=== PATIENT | male | born 1945 | race Caucasian/White ===

== ENCOUNTER 2024-08-15 11:30 | Day surgery (SDC) | payer OTHER, SELFPAY ==
[2024-08-15] VITALS (10 sets, daily range): BP systolic 71–133; BP diastolic 48–80; PULSE 65–81; RESP 12–16; TEMP 36.1–36.3; O2SAT 94–99; BMI 23.6
--- NOTE | 2024-08-15 12:30 | EGD_PTH ---
PATIENT: CRYSTAL PATE LOC: EN U#:[id number] AGE/SX: 79/M ROOM: RE08/15/[address]: Dr. Avi Okeefe DO : 1945 BED: DIS: 08/15/2024 SPEC #: [id number] RECD: 08/15/24 14:12 STATUS: TANO RETaty #: [id number] BLANCO: 08/15/24 12:[address]: Avi Okeefe DEPT: SURGICAL PATHOLOGY RECD BY: Stormy Mensah Tissues: Esophagus, NOS Procedures: Special Stain Group I Surgery Specimen Level IV Alcian Blue/PAS (control) HEADER OPERATION: EGD with biopsy and Argon plasma coagulation PRE-OP DIAGNOSIS: Dysphagia TISSUE SUBMITTED: Distal esophagus biopsy MICROSCOPIC DIAGNOSIS Distal esophagus, biopsy: Fragments of gastroesophageal mucosa with chronic inflammation. Intestinal metaplasia (goblet cell metaplasia) not identified. See comment. 08/17/2024 COMMENT Alcian blue/PAS stain with matched control is used in the evaluation of the specimen. The specimen predominantly consists of squamous mucosa. MICROSCOPIC DESCRIPTION Slides are reviewed. GROSS DESCRIPTION Received in fixative is one container labeled with the patient's name and designated Distal esophagus biopsy. The specimen consists of multiple irregular fragments of light pérez soft tissue that in aggregate measure 2.0 x 0.5 x 0.3 cm. The specimen is totally submitted in one cassette. 08/16/2024 TC:3 CPT:95602,44851
--- NOTE | 2024-08-15 12:58 | PCM.HP.STD ---
HPI - General General Date of Admission: 08/15/24 Date of Service: 08/15/24 Chief Complaint: dysphagia HPI Narrative CRYSTAL PATE, is a 79 M who Pt reports trouble swallowing, change in bowel habits, abdominal pain and heartburn. Prior hx of EGD in 2022 and colonoscopy years ago. Pt reports they have had trouble in the past with colonoscopy due to hernia repair. reports pt is losing weight do to having trouble swallowing and food getting stuck. He only has issues with solids and never liquids. At this point, his diet consists of mostly boost nutritional drinks. He does have a hx of heartburn but it has not been bad recently. He has no appetite or ability to taste. He has constipation occasionally alternating with diarrhea. This is his normal. Last colonoscopy was over 10 years ago. He did have a Cologuard test about one year ago that was normal. EGD 8..21; mild schatzki ring, normal stomach, erythematous duodenopathy EGD 5.3.23; normal esophagus, gastritis, duodenitis [facility] Medical History (Updated 08/15/24 @ 13:[address] Cárdenas Friend, DO) Wears hearing aid Dermatitis Rash Back pain Arthritis Inguinal hernia Former smoker Cardiology follow-up encounter Vitamin D deficiency PTSD (post-traumatic stress disorder) NICOLE (obstructive sleep apnea) Low back pain Hiatal hernia Feeding difficulty Diverticulosis Chronic neck pain Bilateral hearing loss Benign essential HTN HLD (hyperlipidemia) Depression GERD (gastroesophageal reflux disease) Supraventricular tachycardia Type 2 diabetes mellitus Malignant neoplasm of prostate Dysphagia Home Medications ?Medication ?Instructions ?Recorded ?Last Taken ?Type cholecalciferol (vitamin D3) 125 125 mcg PO QDAY 07/28/24 Unknown History mcg (5,000 unit) capsule coenzyme Q10 100 mg capsule 100 mg PO QDAY 07/28/24 Unknown History (CoQ-10) glipizide 5 mg tablet 5 mg PO BID 07/28/24 Unknown History magnesium oxide 400 mg (241.3 mg 400 mg PO QDAY 07/28/24 Unknown History magnesium) tablet metformin 1,000 mg tablet 1,000 mg PO BID 07/28/24 Unknown History multivitamin 1 tab PO QAM 07/28/24 Unknown History sertraline 150 mg capsule 150 mg PO BID 07/28/24 Unknown History simvastatin 80 mg tablet 40 mg PO QDAY 07/28/24 Unknown History acetaminophen 500 mg capsule 500 mg PO Q6H PRN pain 08/11/24 Unknown History Allergy/AdvReac Type Severity Reaction Status Date / Time Penicillins (PCN) Allergy Intermediate Hives Verified 08/15/24 12:08 Family History Father Prostate cancer Mother Cerebral embolism Social History Smoking Status: Former smoker quit date: 08/02/83 alcohol intake: never ROS Constitutional Constitutional: Denies fatigue, fever(s), poor appetite, weight gain or weight loss Gastrointestinal Gastrointestinal: Denies belching, bloating, change in bowel habits, change in stool character, chewing difficulty, coffee ground emesis, constipation, cramping, diarrhea, dyspepsia, dysphagia, early satiety, excessive flatus, fecal incontinence, heartburn, hematemesis, hematochezia, hemorrhoids, loose stools, melena, nausea, odynophagia, rectal bleeding, tenesmus, vomiting or weight changes Vital Signs Vital Signs Vital Signs: 08/15/24 12:10 08/15/24 12:10 Temperature 97 F L Temperature Source Temporal Pulse Rate 68 Respiratory Rate 14 Respiratory Pattern Normal Blood Pressure 133/80 H Blood Pressure Mean 97 Blood Pressure Source Monitor Blood Pressure Position Semi-Fowlers Blood Pressure Location Right Arm Pulse Ox 98 Oxygen Delivery Method Room Air Weight Weight: 174 lb 2.643 oz Body Mass Index (BMI) 23.6 Physical Exam Const alert, oriented x3, no apparent distress and healthy appearing General Appearance: cooperative GI normal to inspection, nondistended, normoactive bowel sounds, soft to palpation, non-tender and non-distended Percussion: normal to percussion Rectal Exam: deferred Assessment & Plan Assessment/Plan (1) Dysphagia: PLAN: Assessment and Plan Assessment and Plan (1) Dysphagia: Plan: This is an 79 yo male pt who is [facility] here today for chronic issues with swallowing. Pt has been having food get stuck in his esophagus for a few years but is now increasing in frequency. His diet is limited and mostly consists of boost nutritional drinks. He has had multiple EGDs in the past showing Schatzki ring and inflammation in the stomach and duodenum. Last EGD was in 2022. He will undergo another EGD at this time to assess for inflammation, stricturing, or dysmotility. -EGD with dilation if indicated -f/u after procedure
--- NOTE | 2024-08-15 12:58 | PCM.PRE.AN2 ---
ASA Classification* ASA Classification ASA Classification: 3 Assessment & Plan Anesthesia* Anesthesia Assessment Anesthesia Assessment: Discussed sedation and/or anesthesia options, risks, benefits, and alternatives with patient/parents/legal guardian/POA. Questions invited. The patient/parents/legal guardian/POA seems to understand and agrees to proceed with anesthesia plan. Reviewed the physical assessment, medical history, allergy history and patient home medications list prior to surgery/procedure/anesthetic and documented any changes. Performed airway and anesthesia risk assessments. Anesthesia Type Anesthesia Type: MAC History Source History Obtained from:: Patient and Chart Anesthesia Focused Assessment* Temperature: 97 F Pulse Rate: 68 Blood Pressure: 133/80 Respiratory Rate: 14 Pulse Ox: 98 Oxygen Delivery Method: Room Air Airway Assessment Mouth opens: >3 cm Mallampati Score: III Teeth Condition: Missing (Multiple missing molars.) Neck Range of motion (ROM): Limited ROM (Somewhat decreased extension) Focused Labs Anesthesia Preop lab: CBC CHEMISTRY COAG Pre-Assessment Diagnosis/Proposed Procedure Planned Operative Procedure(s): EGD Anesthesia History Anesthesia History - clay modeler: Anesthesia History - clay modeler Hx Hospitalization No 08/11/24 14:57 Any Problems With Anesthesia No 08/11/24 14:57 Cholinesterase deficiency No 08/11/24 14:57 You/Your Family Experience No 08/11/24 14:57 fever (hyperthermia) with Relationship Recent Exposure to Contagious No 08/15/24 12:10 Disease Does patient have nerve No 08/11/24 14:57 stimulator Patient instructed to have device shut off --Does patient have Pacemaker No 08/15/24 12:10 or ICD? When Was Last Pacemaker Check QUESTION #4 FULL TEXT: You/Your Family Experience fever (hyperthermia) with Anesthesia Last Oral Intake Last Oral intake: Last Oral Intake NPO since 23:00 08/15/24 12:10 Meds taken in AM with sips of No 08/15/24 12:10 water? Meds patient instructed to take am of surgery PONV PONV - clay modeler: PONV - clay modeler Female Yes 08/11/24 14:57 HX of Motion Sickness No 08/11/24 14:57 HX of N/V After Surgery No 08/11/24 14:57 Non-Smoker Yes 08/11/24 14:57 Duration of Surgery greater No 08/11/24 14:57 than 60 minutes Number of Risk Factors 2 08/11/24 14:57 PONV Score Moderate Risk 08/11/24 14:57 Height & Weight Height & Weight: Anesthesia: Height & Weight Height 6 ft 08/15/24 12:10 Weight: 79 kg 08/15/24 12:10 Body Mass Index (BMI) 23.6 08/15/24 12:10 Respiratory Assessment Respiratory Assessment - clay modeler: Respiratory Tract Infection Hx - clay modeler Hx Respiratory Tract Infection No 08/11/24 14:57 STOP Sleep Apnea STOP Sleep Apnea - clay modeler: STOP Sleep Apnea - clay modeler Hx Hypertension No 08/11/24 14:57 Hx Sleep Apnea Yes 08/11/24 14:57 CPAP Yes: DOESN'T WEAR 08/11/24 14:57 BIPAP No 08/11/24 14:57 Do you snore loudly (louder than talking or can be heard Do you often feel tired/ fatigued/ sleepy during daytime? Has anyone observed you stop breathing during sleep? STOP Results Positive 08/11/24 14:57 QUESTION #5 FULL TEXT : Do you snore loudly (louder than talking or can be heard through closed doors)? Tobacco Use History Tobacco Use History - clay modeler: Tobacco Use History - clay modeler Tobacco Use Smoking Status Former smoker 08/11/24 14:57 Hx Tobacco Use No 08/11/24 14:57 Years Smoking Packs Smoked per Day Smoking Cessation Date was No - quit smoking greater 08/11/24 14:57 within the last 15 years than 15 years ago Hx Smoking Cessation Date Hx Smoking Cessation Counseling Hematologic Medial History Hematologic Hx - clay modeler: Hematologic Medical Hx - maintenance welder Hx of Blood Transfusion No 08/11/24 14:57 Hx of Transfusion in last 3 No 08/11/24 14:57 Months Date of Last Transfusion (if within last 3 months) Ever experience any problems No 08/11/24 14:57 with transfusion(s)? Specify any problems Hx of Preganancy in last 3 N/A 08/11/24 14:57 Months Nurse Filling Out Transfusion [email or web address] 08/11/24 14:57 & Questions: Date: 08/11/24 08/11/24 14:57 Time: 15:02 08/11/24 14:57 Patient unable to answer at this time (ie. confused, unrespo /Reproduction History /Reproductive History - clay modeler: /Reproductive Hx- clay modeler Hx Now Gestational Age (in weeks): EDC: Hx Hx Para Hx Section SAB PFSH Medical History Wears hearing aid Dermatitis Rash Back pain Arthritis Inguinal hernia Former smoker Cardiology follow-up encounter Vitamin D deficiency PTSD (post-traumatic stress disorder) NICOLE (obstructive sleep apnea) Low back pain Hiatal hernia Feeding difficulty Diverticulosis Chronic neck pain Bilateral hearing loss Benign essential HTN HLD (hyperlipidemia) Depression GERD (gastroesophageal reflux disease) Supraventricular tachycardia Type 2 diabetes mellitus Malignant neoplasm of prostate Dysphagia Home Medications ?Medication ?Instructions ?Recorded ?Last Taken ?Type cholecalciferol (vitamin D3) 125 125 mcg PO QDAY 07/28/24 Unknown History mcg (5,000 unit) capsule coenzyme Q10 100 mg capsule 100 mg PO QDAY 07/28/24 Unknown History (CoQ-10) glipizide 5 mg tablet 5 mg PO BID 07/28/24 Unknown History magnesium oxide 400 mg (241.3 mg 400 mg PO QDAY 07/28/24 Unknown History magnesium) tablet metformin 1,000 mg tablet 1,000 mg PO BID 07/28/24 Unknown History multivitamin 1 tab PO QAM 07/28/24 Unknown History sertraline 150 mg capsule 150 mg PO BID 07/28/24 Unknown History simvastatin 80 mg tablet 40 mg PO QDAY 07/28/24 Unknown History acetaminophen 500 mg capsule 500 mg PO Q6H PRN pain 08/11/24 Unknown History Allergy/AdvReac Type Severity Reaction Status Date / Time Penicillins (PCN) Allergy Intermediate Hives Verified 08/15/24 12:08 Family History Father Prostate cancer Mother Cerebral embolism Surgical History (Updated 08/15/24 @ 13:[address] Pantera Eubanks MD) Abnormal TRUS (transrectal ultrasound), prostate H/O right inguinal hernia repair Social History Smoking Status: Former smoker quit date: 08/02/83 alcohol intake: never Review of Systems (Anesthesia) ROS Narrative System reviewed and no additional complaints, except as documented.
--- NOTE | 2024-08-15 13:40 | OP.EGD_ITS ---
Patient Name: Aldo Quintero Procedure Date: 08/15/2024 1:04 PM Date of : 1945 Age: 79 Procedure: Upper GI endoscopy Indications: Dysphagia Providers: Avi Okeefe DO Referring MD: Lady Raymond Medicines: Monitored Anesthesia Care Patient Profile: This is an 79 year old male. Refer to note in patient chart for documentation of history and physical. Patient has symptoms of dysphagia with solids. Complications: No immediate complications. Procedure: Pre-Anesthesia Assessment: - Prior to the procedure, a History and Physical was performed, and patient medications and allergies were reviewed. The patient is competent. The risks and benefits of the procedure and the sedation options and risks were discussed with the patient. All questions were answered and informed consent was obtained. Patient identification and proposed procedure were verified by the physician in the pre-procedure area. Mental Status Examination: alert and oriented. Airway Examination: normal oropharyngeal airway and neck mobility. Respiratory Examination: clear to auscultation. CV Examination: normal. Prophylactic Antibiotics: The patient does not require prophylactic antibiotics. Prior Anticoagulants: The patient has taken no anticoagulant or antiplatelet agents except for NSAID medication. ASA Grade Assessment: III - A patient with severe systemic disease. After reviewing the risks and benefits, the patient was deemed in satisfactory condition to undergo the procedure. The anesthesia plan was to use monitored anesthesia care (MAC). Immediately prior to administration of medications, the patient was re-assessed for adequacy to receive sedatives. The heart rate, respiratory rate, oxygen saturations, blood pressure, adequacy of pulmonary ventilation, and response to care were monitored throughout the procedure. The physical status of the patient was re-assessed after the procedure. After obtaining informed consent, the endoscope was passed under direct vision. Throughout the procedure, the patient's blood pressure, pulse, and oxygen saturations were monitored continuously. The Endoscope was introduced through the mouth, and advanced to the second part of duodenum. The upper GI endoscopy was accomplished without difficulty. The patient tolerated the procedure well. The patient tolerated the procedure well. Scope In: 1:20:28 PM Scope Out: 1:32:58 PM Total Procedure Duration Time 0 hours 12 minutes 30 seconds Findings: LA Grade B (one or more mucosal breaks greater than 5 mm, not extending between the tops of two mucosal folds) esophagitis with no bleeding was found 38 to 40 cm from the incisors. Biopsies were taken with a cold forceps for histology. Verification of patient identification for the specimen was done. Estimated blood loss was minimal. A severe Schatzki ring was found at the gastroesophageal junction. Coagulation for tissue destruction using argon plasma at 0.3 liters/minute and 20 farris was successful. Estimated blood loss was minimal. A small hiatal hernia was present. No other significant abnormalities were identified in a careful examination of the stomach. No gross lesions were noted in the second portion of the duodenum. Impression: - LA Grade B erosive esophagitis with no bleeding. Biopsied. - Severe Schatzki ring. Treated with argon plasma coagulation (APC). - Small hiatal hernia. - No gross lesions in the second portion of the duodenum. Recommendation: - Discharge patient to home. - Resume previous diet. - Use Protonix (pantoprazole) 40 mg PO BID for 3 months. - Continue present medications. Procedure Code(s): --- Professional --- 14697, Esophagogastroduodenoscopy, flexible, transoral; with ablation of tumor(s), polyp(s), or other lesion(s) (includes pre- and post-dilation and guide wire passage, when performed) 25974, 59,51, Esophagogastroduodenoscopy, flexible, transoral; with biopsy, single or multiple CPT copyright 2021 [employer]. All rights reserved. The codes documented in this report are preliminary and upon claims examiner review may be revised to meet current compliance requirements. Avi Okeefe DO 08/15/2024 1:39:29 PM This report has been signed electronically. Number of Addenda: 0 Note Initiated On: 08/15/2024 1:04 PM
--- NOTE | 2024-08-15 13:40 | OP.CCLET_ITS ---
08/15/2024 Mandi Re : Upper GI endoscopy procedure for Aldo Raymond This procedure was performed on Thursday, August 15, 2024. My impressions and recommendations are as follows: Impressions : - LA Grade B erosive esophagitis with no bleeding. Biopsied. - Severe Schatzki ring. Treated with argon plasma coagulation (APC). - Small hiatal hernia. - No gross lesions in the second portion of the duodenum. Recommendations : - Discharge patient to home. - Resume previous diet. - Use Protonix (pantoprazole) 40 mg PO BID for 3 months. - Continue present medications. My findings are described in the full procedure note, which is enclosed. If I can be of further assistance, please feel free to contact me at . Sincerely, Avi Friend, 08/15/2024 1:39:29 PM This report has been signed electronically.
--- NOTE | 2024-08-15 13:44 | PCM.POST.ANE ---
Anesthesia: Postop Eval I Current Vital Signs Temperature: 97.3 F Pulse Rate: 71 Blood Pressure: 98/54 Respiratory Rate: 12 Pulse Ox: 99 Oxygen Delivery Method: Room Air Assessment Airway patent: Yes Spontaneous unlabored respirations: Yes Mental status: Asleep nausea: No Vomiting: No Anesthesia Complication: No Fluid Hydration Crystalloid volume administer (ml): 50 Total IV fluid infused: 50 Progress Note Anesthesia document: Postop Eval 1 completed: Yes
[2024-08-15] MEDS: Pantoprazole Sodium 40 MG in 0.9% Normal Saline (100mL MB+) 100 ML 330 MG IV (13:46)
[2024-08-15] MEDS: 0.9% Normal Saline (500mL Bag) 500 ML 999 ML IV (14:07)
[2024-08-15 15:12] LABS: Bedside Glucose 146 mg/dL (74-106)
--- NOTE | 2024-08-15 20:32 | PCM.POSTANE2 ---
Anesthesia Postop Eval I Sum Postop Eval Completion status Anesthesia document: Postop Eval 1 completed: Yes Anesthesia Postop Eval I Summary Anesthesia Postop Eval I Summary: Anesthesia Postop Eval I: Assessment Summary Airway patent Yes 08/15/24 13:45 [email or web address] Spontaneous unlabored Yes 08/15/24 13:45 [email or web address] respirations Mental status Asleep 08/15/24 13:45 [email or web address] nausea No 08/15/24 13:45 [email or web address] Vomiting No 08/15/24 13:45 [email or web address] Anesthesia Postop Eval I: Fluid Summary Crystalloid volume administer 50 08/15/24 13:45 [email or web address] (ml) Colloids volume administered ( ml) Blood Product volume administered (ml) Total IV fluid infused 50 08/15/24 13:45 [email or web address] Anesthesia Postop Eval I: Summary Notes Anesthesia Complication No 08/15/24 13:45 [email or web address] Anesthesia Complication Comment: Post-operative progress note Anesthesia: Postop Eval II Evaluation Mental status: Awake and Calm Pain Level: 0 nausea: No Vomiting: No Progress Note Post-operative progress note: Patient did have's slightly low blood pressures. Treated with 500 cc bolus of IV fluids. Complications Anesthesia Complication: No
== END 2024-08-15 14:57 | disposition home or self-care (01) ==
LOC: EN 11:32 → AC 11:34
PROVIDERS: Visit Provider Internal Medicine Gastroenterology
PROC: 0DJ08ZZ Inspection of Upper Intestinal Tract, Via Natural or Artificial Opening Endoscopic (ICD-10-PCS; CPT 43235; principal; 2024-08-15 12:25)
DX: K21.00 Gastro-esophageal reflux disease with esophagitis, without bleeding (principal); E11.9 Type 2 diabetes mellitus without complications; K22.2 Esophageal obstruction; K44.9 Diaphragmatic hernia without obstruction or gangrene; I10 Essential (primary) hypertension; E78.5 Hyperlipidemia, unspecified; E55.9 Vitamin D deficiency, unspecified; F32.A Depression, unspecified; F43.10 Post-traumatic stress disorder, unspecified; G47.33 Obstructive sleep apnea (adult) (pediatric); Z88.0 Allergy status to penicillin; Z85.46 Personal history of malignant neoplasm of prostate; Z79.84 Long term (current) use of oral hypoglycemic drugs; Z79.899 Other long term (current) drug therapy; Z87.891 Personal history of nicotine dependence
CPT/HCPCS: 43239; 43270; 82962; 88305; 88312; A4216; J2405